=== PATIENT | female | born 1990 | race Caucasian/White ===

== ENCOUNTER 2021-04-10 09:34 | Outpatient (CLI) | payer OTHER, SELFPAY ==
--- NOTE | 2021-04-10 10:18 | ECG_ITS ---
Measurements Intervals [place] Rate: 85 P: 52 AK: 155 QRS: 46 QRSD: 104 T: 48 QT: 387 QTc: 463 Interpretive Statements SINUS RHYTHM FREQUENT VENTRICULAR PREMATURE COMPLEXES ABNORMAL ECG Electronically Signed On 04-10-2021 11:06:13 CDT by Tony Felton D.O.
--- NOTE | 2021-04-10 10:18 | EST_ITS ---
Patient Info Name: Frieda Lowry Age: 31 years : 1990 Gender: Female Ht: 68 in Wt: 220 lbs BSA: 2.22 m2 HR: 67 bpm BP: 111 / 74 mmHg Exam Date: 04/10/2021 10:27 AM Exam Location: [facility] Stress Patient Status: Outpatient Admit Date: 04/10/2021 Staff Ordering Physician: Russell Marrero MD Attending Provider: Russell Marrero MD Exercise Technologist: Gabbi Oreilly CT Exam Type: CA stress test treadmill Study Info An exercise stress test was performed. Summary 1. 1. Negative Servando exercise stress test for ischemic ST changes by ECG criteria. 2. 2. Good functional capacity, achieving 10 METs of workload. 3. 3. Appropriate HR response to exercise. 4. 4. Appropriate HR recovery at 1 minute post exercise. 5. 5. No imaging with stress testing. 6. 6. Patient informed of the above results. Protocol: Servando Stress ECG Details Stage: REST Duration (min): 1 min : 18 sec Speed (mph): 0.0 Grade (%): 0 HR (bpm): 74 SBP (mmHg): 111 DBP (mmHg): 74 METS: --- Stage: REST Duration (min): 11 min : 4 sec Speed (mph): 0.0 Grade (%): 0 HR (bpm): 77 SBP (mmHg): 111 DBP (mmHg): 74 METS: --- Stage: STAGE 1 Duration (min): 1 min : 0 sec Speed (mph): 1.7 Grade (%): 10 HR (bpm): 96 SBP (mmHg): 111 DBP (mmHg): 74 METS: --- Stage: STAGE 1 Duration (min): 2 min : 0 sec Speed (mph): 1.7 Grade (%): 10 HR (bpm): 110 SBP (mmHg): 111 DBP (mmHg): 74 METS: --- Stage: STAGE 1 Duration (min): 3 min : 0 sec Speed (mph): 1.7 Grade (%): 10 HR (bpm): 115 SBP (mmHg): 119 DBP (mmHg): 51 METS: --- Stage: STAGE 2 Duration (min): 1 min : 0 sec Speed (mph): 2.5 Grade (%): 12 HR (bpm): 123 SBP (mmHg): 119 DBP (mmHg): 51 METS: --- Stage: STAGE 2 Duration (min): 2 min : 0 sec Speed (mph): 2.5 Grade (%): 12 HR (bpm): 130 SBP (mmHg): 134 DBP (mmHg): 56 METS: --- Stage: STAGE 2 Duration (min): 3 min : 0 sec Speed (mph): 2.5 Grade (%): 12 HR (bpm): 130 SBP (mmHg): 134 DBP (mmHg): 56 METS: --- Stage: STAGE 3 Duration (min): 1 min : 0 sec Speed (mph): 3.4 Grade (%): 14 HR (bpm): 150 SBP (mmHg): 147 DBP (mmHg): 107 METS: --- Stage: STAGE 3 Duration (min): 2 min : 0 sec Speed (mph): 3.4 Grade (%): 14 HR (bpm): 159 SBP (mmHg): 147 DBP (mmHg): 107 METS: --- Stage: STAGE 3 Duration (min): 2 min : 59 sec Speed (mph): 3.4 Grade (%): 14 HR (bpm): 166 SBP (mmHg): 147 DBP (mmHg): 107 METS: --- Stage: RECOVERY Duration (min): 1 min : 0 sec Speed (mph): 0.0 Grade (%): 0 HR (bpm): 131 SBP (mmHg): 147 DBP (mmHg): 107 METS: --- Stage: RECOVERY Duration (min): 2 min : 0 sec Speed (mph): 0.0 Grade (%): 0 HR (bpm): 106
== END 2021-04-10 09:35 | disposition home or self-care (01) ==
LOC: ANHCARD 09:37
PROVIDERS: PCP Family Medicine; Visit Provider Family Medicine
DX: R07.2 Precordial pain (principal); R94.31 Abnormal electrocardiogram [ECG] [EKG]
CPT/HCPCS: 93005; 93017